=== PATIENT | male | born 1975 | race Caucasian/White ===

== ENCOUNTER 2017-07-26 13:52 | Emergency (ER) | payer SELFPAY ==
[2017-07-26 14:20] VITALS: BP 153/95
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
[2017-07-26] MEDS ORDERED: Lidocaine 1% 10 ML MDV INJECT ONE (14:58)
--- NOTE | 2017-07-26 15:06 | CT ---
CT facial bones Technique: Multiple axial sections through the facial bones were obtained. Intravenous contrast was not utilized. Reconstructed coronal and sagittal images were reviewed. Comparison: No previous facial study. Findings: Inward bowing of the medial right orbital wall is seen compatible with previous fracture. I do not believe that this is acute as I do not see an acute fracture line as well as there is no mucosal thickening seen next to this abnormality. Minimal mucosal thickening is noted anteriorly within the left ethmoid sinus which is incidental. Other visualized sinuses are clear. Right and left orbits are symmetric in size. No retrobulbar abnormality is seen. No acute facial bone fracture is appreciated. There appears to be a dental caries within the second incisor on the left side within the mandible. Please correlate. Impression: 1. Findings felt to be nonacute as described above. Diagnostic code #2
[2017-07-26] MEDS ORDERED: Cephalexin 500 MG Cap PO ONE (15:33)
--- NOTE | 2017-07-27 07:53 | CR ---
Left hand: Four views of the left hand were obtained. Comparison: No previous study. Small radiopacity is projected superficially within the ulnar side of the palm. Please correlate if this is acute or old. Joint spaces are preserved within the hand. Soft tissue swelling is identified. No acute bony abnormality is identified. Impression: 1. Soft tissue foreign body as described above. 2. Soft tissue swelling. 3. No acute bony abnormality is identified. Diagnostic code #3
== END 2017-07-26 15:58 | disposition home or self-care (01) ==
LOC: JD.ED 13:52
DX: S61.012A Laceration without foreign body of left thumb without damage to nail, initial encounter (principal); S61.402A Unspecified open wound of left hand, initial encounter; S61.241A Puncture wound with foreign body of left index finger without damage to nail, initial encounter; H11.31 Conjunctival hemorrhage, right eye; F17.210 Nicotine dependence, cigarettes, uncomplicated; Z88.1 Allergy status to other antibiotic agents; Z79.899 Other long term (current) drug therapy; W37.8XXA Explosion and rupture of other pressurized tire, pipe or hose, initial encounter; Y99.0 Civilian activity done for income or pay
CPT/HCPCS: 12001; 70486; 70486-26; 73130-26-LT; 73130-LT; 99283-25; 99284-25; A9270-GY

== ENCOUNTER 2017-07-28 13:59 | Emergency (ER) | payer SELFPAY ==
[2017-07-28 14:27] VITALS: BP 144/96
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
== END 2017-07-28 15:56 | disposition home or self-care (01) ==
LOC: JD.ED 13:59
DX: S61.012D Laceration without foreign body of left thumb without damage to nail, subsequent encounter (principal); F17.210 Nicotine dependence, cigarettes, uncomplicated; I10 Essential (primary) hypertension; Z88.1 Allergy status to other antibiotic agents; Z79.899 Other long term (current) drug therapy; X58.XXXD Exposure to other specified factors, subsequent encounter
CPT/HCPCS: 99283

== ENCOUNTER 2018-01-13 23:34 | Emergency (ER) | payer MEDICAID ==
[2018-01-13 23:45] VITALS: BP 148/100
[2018-01-14] MEDS ORDERED: Acetaminophen/oxyCODONE 325-5 MG Tab PO ONE (00:04)
[2018-01-14] MEDS ORDERED: Amoxicillin 500 MG Cap PO ONE (00:26)
--- NOTE | 2018-01-14 00:31 | EDM.PDOC ---
ED HPI GENERAL MEDICAL PROBLEM - General Chief Complaint: ENT Problem Stated Complaint: TOOTHACHE Time Seen by Provider: 01/13/18 23:51 Source of Information: Reports: Patient, RN Notes Reviewed - History of Present Illness INITIAL COMMENTS - FREE TEXT/NARRATIVE: 42-year-old male comes in with left-sided dental pain. This is been intermittent in the past but much more severe for the last 2 days. He has an appointment to see a dentist in 1 day. No fever or chills. There has been pressure sensitivity and hot and cold sensitivity. Left Tooth/Teeth Pain Score (Numeric/FACES): 10 - Related Data Allergies Allergy/AdvReac Type Severity Reaction Status Date / Time tetracycline Allergy Hives Verified 01/13/18 23:45 Home Meds: Home Meds Lisinopril 40 mg PO DAILY 07/11/15 [History] Acetaminophen/HYDROcodone [[place] 325-5 MG] 1 tab PO Q6H PRN #14 tablet 01/14/18 [Rx] Past Medical History Other HEENT History: wears glasses Cardiovascular History: Reports: Hypertension - Past Surgical History Musculoskeletal Surgical History: Reports: Other (See Below) Other Musculoskeletal Surgeries/Procedures:: carpal tunnel surgery Social & Family History - Tobacco Use Smoking Status *Q: Former Smoker Used Tobacco, but Quit: Yes Month/Year Tobacco Last Used: 6 months ago - Caffeine Use Caffeine Use: Reports: Coffee - Recreational Drug Use Recreational Drug Use: No - Living Situation & Occupation Living situation: Reports: Occupation: Employed ED ROS ENT - Review of Systems Review Of Systems: See Below Constitutional: Denies: Fever, Chills HEENT: Reports: Dental Pain Respiratory: Denies: Shortness of Breath GI/Abdominal: Denies: Abdominal Pain, Nausea, Vomiting ED EXAM, ENT - Physical Exam Exam: See Below General Appearance: Alert, Mild Distress Mouth/Throat: Normal Inspection, Other (Left lower posterior molar is tender, no visible gloom swelling, no drainage, evidence of widespread poor dentition and gloom disease) Head: No: Facial Swelling Neck: Supple Respiratory/Chest: No Respiratory Distress Neurological: Alert, No Motor/Sensory Deficits Skin: Warm, No Rash Course - Vital Signs Last Recorded V/S: Last Vital Signs Temp 97.6 F 01/13/18 23:42 Pulse 70 01/13/18 23:42 Resp 19 01/13/18 23:42 BP 148/100 H 01/13/18 23:42 Pulse Ox 100 01/13/18 23:42 - Orders/Labs/Meds Meds: Medications Discontinued Medications Generic Name Dose Route Start Last Admin Trade Name Bozena PRN Reason Stop Dose Admin Amoxicillin 1,000 mg 01/14/18 00:26 Amoxil PO 01/14/18 00:27 ONETIME ONE Oxycodone/Acetaminophen 1 tab 01/14/18 00:04 01/14/18 00:08 Percocet 325-5 Mg PO 01/14/18 00:05 1 tab ONETIME ONE Administration Departure - Departure Time of Disposition: 00:25 Disposition: Home, Self-Care 01 Condition: Fair Clinical Impression: Pain, dental - Discharge Information Prescriptions: Acetaminophen/HYDROcodone [[place] 325-5 MG] 1 tab PO Q6H PRN #14 tablet PRN Reason: Pain Referrals: Evelyn Plunkett PA-C [Primary Care Provider] - Forms: ED Department Discharge Additional Instructions: See dentist tomorrow as planned, you've been given 1 Percocet pain pill while here in the ED, do not drive for the next 7 to 8 hours, amoxicillin 1000 mg twice daily for 1 week, continue Advil or ibuprofen 600 mg up to 3 times daily. You may take hydrocodone in between doses if needed for severe pain.
== END 2018-01-14 00:37 | disposition home or self-care (01) ==
LOC: JD.ED 23:34
DX: K08.89 Other specified disorders of teeth and supporting structures (principal); I10 Essential (primary) hypertension; Z88.1 Allergy status to other antibiotic agents; Z87.891 Personal history of nicotine dependence
CPT/HCPCS: 99283; A9270

== ENCOUNTER 2018-12-09 20:44 | Emergency (ER) | payer MEDICAID ==
[2018-12-09 20:56] VITALS: BP 156/108
[2018-12-09] MEDS ORDERED: Acetaminophen/HYDROcodone 325-5 MG Tab PO ONE (21:15)
[2018-12-09] MEDS ORDERED: Bupivacaine 0.25% 10 ML SDV INJECT ONE (21:15)
[2018-12-09] MEDS ORDERED: Bupivacaine 0.5% 10 ML SDV ONE (21:20)
--- NOTE | 2018-12-09 21:55 | EDM.PDOC ---
ED HPI GENERAL MEDICAL PROBLEM - General Chief Complaint: ENT Problem Stated Complaint: PAIN IN FACE AND NECK MULTIPLE INFECTED TEETH? Time Seen by Provider: 12/09/18 21:00 Source of Information: Reports: Patient History Limitations: Reports: No Limitations - History of Present Illness INITIAL COMMENTS - FREE TEXT/NARRATIVE: 43 y/o male present to the ER with cc dental and jaw pain. He states the pain started a few days ago and seem to be getting worse. He states his teeth are bad and he needs to see a dentist but is new to the area. He reports having chills, no fever. He states the pain increases when he chews or drinks anything. He reports taking Ibuprofen 600 mg last 6 hours ago. He is accompanied by significant other. Onset Date: 12/07/18 Onset Time: 09:00 Duration: Getting Worse Location: Reports: Face Quality: Reports: Throbbing Severity: Mild Improves with: Reports: None Worsens with: Reports: None Treatments RIVET DRIVER: Reports: NSAIDS, Other (see below) Other Treatments RIVET DRIVER: iburofen Bilateral Oral/Mouth Pain Score (Numeric/FACES): 10 - Related Data Allergies Allergy/AdvReac Type Severity Reaction Status Date / Time tetracycline Allergy Hives Verified 12/09/18 21:09 Home Meds: Home Meds Acetaminophen with Codeine [Tylenol with Codeine #3 Tablet] 1 each PO Q6HR PRN 3 Days #12 tablet 12/09/18 [Rx] Amoxicillin 500 mg PO QID 7 Days #28 capsule 12/09/18 [Rx] Past Medical History Other HEENT History: wears glasses Cardiovascular History: Reports: High Cholesterol, Hypertension Neurological History: Reports: Migraines - Past Surgical History Musculoskeletal Surgical History: Reports: Other (See Below) Other Musculoskeletal Surgeries/Procedures:: carpal tunnel surgery Social & Family History - Tobacco Use Smoking Status *Q: Current Every Day Smoker Years of Tobacco use: 25 Packs/Tins Daily: 0.5 - Caffeine Use Caffeine Use: Reports: Coffee - Recreational Drug Use Recreational Drug Use: No - Living Situation & Occupation Living situation: Reports: Occupation: Employed ED ROS ENT - Review of Systems Review Of Systems: See Below Constitutional: Reports: Chills. Denies: Fever HEENT: Reports: Dental Pain Respiratory: Denies: Shortness of Breath Cardiovascular: Denies: Chest Pain Endocrine: Reports: No Symptoms GI/Abdominal: Reports: No Symptoms : Reports: No Symptoms Musculoskeletal: Reports: No Symptoms, Other (jaw pain) Skin: Reports: No Symptoms Neurological: Reports: No Symptoms Psychiatric: Reports: No Symptoms Hematologic/Lymphatic: Reports: No Symptoms Immunologic: Reports: No Symptoms ED EXAM, ENT - Physical Exam Exam: See Below Exam Limited By: No Limitations General Appearance: Alert, WD/WN, No Apparent Distress Mouth/Throat: Dental Pain, Dental Tenderness, Gum Swelling, Other (poor dental hygenie multiple teeth decay noted, gum lines are tender with gingivitis noted. ) Head: Atraumatic, Normocephalic Neck: Normal Inspection, Supple, Non-Tender, Full Range of Motion Respiratory/Chest: No Respiratory Distress, Lungs Clear, Normal Breath Sounds, No Accessory Muscle Use, Chest Non-Tender Cardiovascular: Normal Peripheral Pulses, Regular Rate, Rhythm, No Edema, No Gallop, No JVD, No Murmur, No Rub Neurological: Alert, Oriented, CN II-XII Intact, Normal Cognition, Normal Gait, Normal Reflexes, No Motor/Sensory Deficits Psychiatric: Normal Affect, Normal Mood Skin: Warm, Dry, Intact, Normal Color, No Rash Lymphatic: No Adenopathy Course - Vital Signs Last Recorded V/S: Last Vital Signs Temp 99.7 F 12/09/18 20:53 Pulse 100 12/09/18 20:53 Resp 18 12/09/18 20:53 BP 156/108 H 12/09/18 20:53 Pulse Ox 97 12/09/18 20:53 - Orders/Labs/Meds Meds: Medications Discontinued Medications Generic Name Dose Route Start Last Admin Trade Name Bozena PRN Reason Stop Dose Admin Hydrocodone Bitart/Acetaminophen 1 tab 12/09/18 21:15 [place] 325-5 Mg PO 12/09/18 21:16 ONETIME ONE Bupivacaine HCl 10 ml 12/09/18 21:15 Sensorcaine-Mpf 0.25% INJECT 12/09/18 21:16 ONETIME ONE Bupivacaine HCl Confirm 12/09/18 21:20 Sensorcaine-Mpf 0.5% Administered 12/09/18 21:21 Dose 10 ml .ROUTE .STK-MED ONE - Radiology Interpretation Free Text/Narrative:: 43 y/o male presented to ER with cc dental pain and chills for the past 2 days. His examination is consistent with gingivitis and dental decay. He decline dental block at this time. I will discharge home with Amoxicillin for outpatient antibiotic therapy. I will discharge home with small amount of Tylenol # 3 for pain. I instructed him to follow up with dentist for further evaluation and treatment. Patient verbalized understanding and is comfortable with plan for discharge. He is stable at time of discharge. Departure - Departure Time of Disposition: 21:58 Disposition: Home, Self-Care 01 Condition: Good Clinical Impression: Gingivitis, Pain, dental - Discharge Information Prescriptions: Acetaminophen with Codeine [Tylenol with Codeine #3 Tablet] 1 each PO Q6HR PRN 3 Days #12 tablet PRN Reason: dental pain Amoxicillin 500 mg PO QID 7 Days #28 capsule Instructions: Gingivitis, Preventive Dental Care, Adult, Gingivitis, Easy-to- Read Referrals: PCP,None [Primary Care Provider] - Forms: ED Department Discharge Additional Instructions: You have been diagnosis with gingivitis and dental pain. You have been given Amoxicillin for outpatient antibiotic therapy. You have been given Tylenol # 3 for pain. Do not drink, drive or operate machinery while taking this medication. Follow up with dentist. Return to the ER for any new or acute worsening symptoms.
[2018-12-09] MEDS ORDERED: Amoxicillin 500 MG Cap PO ONE (22:05)
== END 2018-12-09 22:20 | disposition home or self-care (01) ==
LOC: JD.ED 20:44
DX: K05.10 Chronic gingivitis, plaque induced (principal); K08.89 Other specified disorders of teeth and supporting structures; F17.210 Nicotine dependence, cigarettes, uncomplicated; Z88.1 Allergy status to other antibiotic agents
CPT/HCPCS: 99282; A9270; 99283

== ENCOUNTER 2018-12-10 15:20 | Emergency (ER) | payer MEDICAID ==
[2018-12-10 15:36] VITALS: BP 150/100
--- NOTE | 2018-12-10 16:13 | EDM.PDOC ---
ED HPI GENERAL MEDICAL PROBLEM - General Chief Complaint: Chest Pain Stated Complaint: DENTAL PAIN Time Seen by Provider: 12/10/18 15:37 Source of Information: Reports: Patient, RN Notes Reviewed, Significant Other ( Fiance) History Limitations: Reports: No Limitations - History of Present Illness INITIAL COMMENTS - FREE TEXT/NARRATIVE: The patient states that he has been experiencing "zapping" retrosternal chest pain on and off since this past 12/08/2018. When present, the sensation lasts only a moment. It occurs 4-5 times a day. He has not identified any modifiers. He had some nausea this morning, but has not experienced any dyspnea, diaphoresis, or sense of impending doom. No history of palpitations. The patient states that this is the same sensation that he had when he presented to the ED on 07/11/2015. At that time, he reported that his pain had been going on for more than a year. His pain was thought to be gastrointestinal in etiology. The patient states that he did not follow-up in that regard, and he does not take an antacid medicine. The patient states that he has taken ibuprofen and Tylenol to try to relieve his symptoms. Records indicate that the patient was seen in this ED yesterday, 12/09/2018, for dental pain. He was prescribed 12 tablets of Tylenol #3. The patient's PCP is Evelyn Plunkett. Headache Pain Score (Numeric/FACES): 7 - Related Data Allergies Allergy/AdvReac Type Severity Reaction Status Date / Time tetracycline Allergy Hives Verified 12/10/18 15:30 Home Meds: Home Meds Acetaminophen with Codeine [Tylenol with Codeine #3 Tablet] 1 each PO Q6HR PRN 3 Days #12 tablet 12/09/18 [Rx] Amoxicillin 500 mg PO QID 7 Days #28 capsule 12/09/18 [Rx] Naproxen 500 mg PO Q12H PRN #20 tablet 12/10/18 [Rx] Past Medical History HEENT History: Reports: Impaired Vision Other HEENT History: wears glasses Cardiovascular History: Reports: High Cholesterol (untreated), Hypertension ( untreated) Gastrointestinal History: Reports: Other (See Below) (Fecal incontinence) Genitourinary History: Reports: Urinary Incontinence Neurological History: Reports: Migraines (when younger) - Past Surgical History Musculoskeletal Surgical History: Reports: Carpal Tunnel (bilateral) Social & Family History - Tobacco Use Smoking Status *Q: Current Every Day Smoker Years of Tobacco use: 29 Packs/Tins Daily: 0.5 Packs/Tins Daily Comment: Down from 1.5 ppd - Caffeine Use Caffeine Use: Reports: Coffee - Alcohol Use Alcohol Use History: Yes Date/Time of Last Drink Comment: Drinks every other day - Recreational Drug Use Recreational Drug Use: No - Living Situation & Occupation Living situation: Reports: , with Significant Other (Fiance) Occupation: Unemployed ED ROS GENERAL - Review of Systems Review Of Systems: ROS reveals no pertinent complaints other than HPI. ED EXAM, GENERAL - Physical Exam Exam: See Below Exam Limited By: No Limitations General Appearance: Alert, WD/WN, No Apparent Distress Eye Exam: Bilateral Eye: EOMI, Normal Inspection Ears: Normal External Exam, Hearing Grossly Normal Nose: Normal Inspection Throat/Mouth: Normal Inspection, Normal Lips, Normal Voice, No Airway Compromise Head: Atraumatic, Normocephalic Neck: Normal Inspection, Full Range of Motion Respiratory/Chest: No Respiratory Distress, Lungs Clear, Normal Breath Sounds, No Accessory Muscle Use, Chest Non-Tender Cardiovascular: Normal Peripheral Pulses, Regular Rate, Rhythm, No Edema, No Gallop, No JVD, No Murmur, No Rub Peripheral Pulses: 4+: Radial (L), Radial (R) GI/Abdominal: Normal Bowel Sounds, Soft, Non-Tender, No Organomegaly, No Distention, No Abnormal Bruit, No Mass (Male) Exam: Deferred Rectal (Males) Exam: Deferred Back Exam: Normal Inspection, Full Range of Motion, NT Extremities: Normal Inspection, Normal Range of Motion, No Pedal Edema, Normal Capillary Refill Neurological: Alert, Oriented, Normal Cognition, No Motor/Sensory Deficits Psychiatric: Normal Affect Skin Exam: Warm, Dry, Intact, Normal Color, No Rash EKG INTERPRETATION EKG Date: 12/10/18 Time: 16:08 Rhythm: NSR Rate (Beats/Min): 82 [place]: Normal P-Wave: Present QRS: Normal (Slightly late transition) ST-T: Normal QT: Normal Comparison: No Change (07/11/2015) Course - Vital Signs Last Recorded V/S: Last Vital Signs Temp 36.8 C 12/10/18 15:30 Pulse 94 12/10/18 15:30 Resp 13 12/10/18 15:30 BP 150/100 H 12/10/18 15:30 Pulse Ox 98 12/10/18 15:30 - Orders/Labs/Meds Orders: Active Orders 24 hr Category Date Time Status EKG Documentation Completion [RC] STAT Care 12/10/18 16:05 Active - Re-Assessments/Exams Free Text/Narrative Re-Assessment/Exam: 12/10/18 16:05 Clearly, the patient's chest pain is not cardiac. Based on his history, it may be related to GERD, versus musculoskeletal. I have ordered an ECG to compare to his prior ECG, however, I do not see an indication for obtaining blood work. 12/10/18 16:21 The patient's ECG is unremarkable, and unchanged from 07/11/2015. I will discharge him home, with the recommendation that he follow-up with his PCP if his symptoms persist. The patient requested additional pain medication for his dental pain. I will submit a prescription for prescription strength naproxen. Departure - Departure Time of Disposition: 16:22 Disposition: Home, Self-Care 01 Condition: Good Clinical Impression: Non-cardiac chest pain, Dentalgia - Discharge Information *PRESCRIPTION DRUG MONITORING PROGRAM REVIEWED*: Not Applicable *COPY OF PRESCRIPTION DRUG MONITORING REPORT IN PATIENT AMIE: Not Applicable Prescriptions: Naproxen 500 mg PO Q12H PRN #20 tablet PRN Reason: Pain Instructions: Nonspecific Chest Pain, [id number] Referrals: Evelyn Plunkett PA-C [Primary Care Provider] - Forms: ED Department Discharge Additional Instructions: You were seen in the emergency room for momentary chest pain, on and off since 12/08/2018. Workup in the ER included an ECG, which was normal. Based on your history, physical exam, and ECG, the cause of your chest pain is unclear, but is definitely not from your heart. If your symptoms persist, we recommend that you follow-up with your PCP, Evelyn Plunkett, for further evaluation. For your dental pain, a prescription for prescription-strength naproxen has been sent to the [facility], located in the [employer]. Take one tablet of naproxen every 12 hours, with food, as prescribed. If you take naproxen, do not also take other NSAIDs, such as aspirin, ibuprofen, or Aleve. If any other problems, please do not hesitate to return to the ER. - My Orders Last 24 Hours: My Active Orders 12/10/18 16:05 EKG Documentation Completion [RC] STAT - Assessment/Plan Last 24 Hours: My Active Orders 12/10/18 16:05 EKG Documentation Completion [RC] STAT
== END 2018-12-10 16:38 | disposition home or self-care (01) ==
LOC: JD.ED 15:20
DX: R07.89 Other chest pain (principal); K08.89 Other specified disorders of teeth and supporting structures; I10 Essential (primary) hypertension; F17.210 Nicotine dependence, cigarettes, uncomplicated
CPT/HCPCS: 93005; 93010; 99283; 99284-25

== ENCOUNTER 2021-02-24 22:49 | Emergency (ER) | payer OTHER, MEDICAID ==
[2021-02-24 23:01] VITALS: BP 145/99; PULSE 98
[2021-02-24] MEDS ORDERED: Lidocaine 1% 10 ML MDV INJECT ONE (23:24)
--- NOTE | 2021-02-25 00:07 | EDM.PDOC ---
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 A coworker was cutting a box with his knife and accidently cut his L foot. Last tetnus about 3 yrs ago. - Related Data Allergies Allergy/AdvReac Type Severity Reaction Status Date / Time tetracycline Allergy Hives Verified 02/24/21 22:57 Home Meds: Home Meds . [No Known Home Meds] 02/24/21 [History] Past Medical History HEENT History: Reports: Impaired Vision Other HEENT History: wears glasses Cardiovascular History: Reports: High Cholesterol, Hypertension Respiratory History: Reports: None Gastrointestinal History: Reports: None Genitourinary History: Reports: Urinary Incontinence Neurological History: Reports: Migraines Psychiatric History: Reports: None Endocrine/Metabolic History: Reports: None Hematologic History: Reports: None Immunologic History: Reports: None Oncologic (Cancer) History: Reports: None Dermatologic History: Reports: None - Infectious Disease History Infectious Disease History: Reports: None - Past Surgical History Head Surgeries/Procedures: Reports: None Musculoskeletal Surgical History: Reports: Carpal Tunnel Other Musculoskeletal Surgeries/Procedures:: carpal tunnel surgery Social & Family History - Tobacco Use Tobacco Use Status *Q: Unknown Ever Used Tobacco - Caffeine Use Caffeine Use: Reports: Coffee - Living Situation & Occupation Living situation: Reports: , with Significant Other (Fiance) Occupation: Unemployed ED ROS GENERAL - Review of Systems Review Of Systems: See Below Constitutional: Reports: No Symptoms HEENT: Reports: No Symptoms Respiratory: Reports: No Symptoms Cardiovascular: Reports: No Symptoms GI/Abdominal: Reports: No Symptoms Musculoskeletal: Reports: Other (Lac injury L grt toe) Neurological: Denies: Numbness, Tingling ED EXAM, SKIN/RASH Exam: See Below General Appearance: Alert, No Apparent Distress Head: Atraumatic Neck: Supple Respiratory/Chest: No Respiratory Distress Extremities: Other (3 cm lac across dorsal distal L grt toe. much of the lac is across the mid toe nail, part of the lac extends to the skin medial to the nail with mild gaping) Neurological: No Motor/Sensory Deficits Skin: Warm, Dry, Normal Color ED SKIN PROCEDURES - Laceration/Wound Repair Left Toe - Great Appearance: Linear Anesthetic Type: Local Local Anesthesia - Lidocaine (Xylocaine): 1% Plain Skin Prep: Saline Lac/Wound length In cm: 3 (Total length of lac across nail and to R of nail 3 cm, length of lac repaired .75 cm) Suture Size: 3-0 # of Sutures: 2 Suture Type: Nylon Course - Vital Signs Last Recorded V/S: Last Vital Signs Temp 98.1 F 02/24/21 22:57 Pulse 98 02/24/21 22:57 Resp 15 02/24/21 22:57 BP 145/99 H 02/24/21 22:57 Pulse Ox 98 02/24/21 22:57 - Orders/Labs/Meds Meds: Medications Discontinued Medications Generic Name Dose Route Start Last Admin Trade Name Bozena PRN Reason Stop Dose Admin Lidocaine HCl 10 ml 02/24/21 23:24 Lidocaine 1% 10 Ml Mdv INJECT 02/24/21 23:25 ONETIME ONE Departure - Departure Time of Disposition: 00:04 Disposition: Home, Self-Care 01 Condition: Fair Clinical Impression: Laceration of toe Qualifiers: Encounter type: initial encounter Toe: great toe Damage to nail status: with damage Foreign body presence: without foreign body Laterality: left Qualified Code(s): S91.212A - Laceration without foreign body of left great toe with damage to nail, initial encounter - Discharge Information Instructions: Laceration Care, Adult, [id number] Referrals: PCP,None [Primary Care Provider] - Forms: ED Department Discharge Additional Instructions: Laceration care instr. Antibiotic ointment 2 to 3 times daily. Stitches out in 10 days. Keep protected when working or walking outdoors, It will be better to have that open to the air when resting indoors. Have rechecked any sign of infection. Sepsis Event Note (ED) - Evaluation Sepsis Screening Result: No Definite Risk - Focused Exam Vital Signs: Vital Signs Temp Pulse Resp BP Pulse Ox 02/24/21 22:57 98.1 F 98 15 145/99 H 98
== END 2021-02-25 00:15 | disposition home or self-care (01) ==
LOC: JD.ED 22:49
DX: S91.212A Laceration without foreign body of left great toe with damage to nail, initial encounter (principal); I10 Essential (primary) hypertension; Z88.1 Allergy status to other antibiotic agents; W26.0XXA Contact with knife, initial encounter; Y99.0 Civilian activity done for income or pay
CPT/HCPCS: 12001; 99282; 99282-25

== ENCOUNTER 2021-03-06 17:55 | Emergency (ER) | payer OTHER, MEDICAID | END 2021-03-06 18:04 | disposition home or self-care (01) | LOC: JD.ED 17:55 | DX: S91.111D Laceration without foreign body of right great toe without damage to nail, subsequent encounter (principal); Z48.02 Encounter for removal of sutures | CPT/HCPCS: 99281 ==

== ENCOUNTER 2021-09-13 17:21 | Emergency (ER) | payer MEDICAID, OTHER ==
[2021-09-13 17:57] VITALS: BP 153/111; PULSE 112
[2021-09-13] MEDS ORDERED: Ketorolac 60 MG/2 ML SDV IM ONE (18:59)
[2021-09-13] MEDS ORDERED: Pseudoephedrine 30 MG Tab PO ONE (18:59)
[2021-09-13 19:41] LABS: CORONAVIRUS COVID-19 NAA NEGATIVE (NEGATIVE)
== END 2021-09-13 20:40 | disposition home or self-care (01) ==
LOC: JD.ED 17:21
DX: J06.9 Acute upper respiratory infection, unspecified (principal); E78.00 Pure hypercholesterolemia, unspecified; I10 Essential (primary) hypertension; Z88.1 Allergy status to other antibiotic agents; Z72.0 Tobacco use; Z20.822 Contact with and (suspected) exposure to COVID-19
CPT/HCPCS: 0240U; 96372; 99283; A9270; J1885; 99284